=== PATIENT | female | born 1950 | race Hispanic/Latino ===

== ENCOUNTER 2021-11-03 11:31 | Emergency (ER) | payer MEDICARE ==
[2021-11-03 15:37] LABS: Color,Urine Straw (Yellow)
[2021-11-03 15:38] LABS: Red Blood Count 4.79 M/mm3 (3.65-5.03)
[2021-11-03 15:39] LABS: Hematocrit 38.3 % (30.3-42.9); Hemoglobin 12.1 gm/dl (10.1-14.3); Mean Corpuscular HGB Conc 32 % (30-34); Mean Corpuscular Volume 80 fl (79-97); Platelet Count 245 K/mm3 (140-440); Red Cell Distribution Width 18.2 % (13.2-15.2)
[2021-11-03 15:41] LABS: Albumin 3.9 g/dL (3.9-5); Calcium 9.3 mg/dL (8.4-10.2)
[2021-11-03 15:45] LABS: Mucus,Urine FEW /HPF
[2021-11-03 15:48] LABS: Total Cells Counted 100
[2021-11-03 15:49] LABS: Anisocytosis 1+; Hypochromasia 1+; Platelet Estimate Consistent w Auto
[2021-11-03 15:59] LABS: Amphetamine Screen,Urine Negative; Cannabinoid Screen,Urine Negative; Cocaine Screen,Urine Negative; Methadone Screen,Urine Negative; Opiate Screen,Urine Negative
[2021-11-03] MEDS ORDERED: DEXTROSE 50% IN WATER (25GM) 50 ML SYRINGE IV ONE ×2 (16:13→19:47)
[2021-11-03] MEDS ORDERED: SODIUM POLYSTYRENE 15 GM/60 ML ORAL LIQD PO ONE ×2 (16:13→19:47)
[2021-11-03] MEDS ORDERED: INSULIN REGULAR, HUMAN 100 UNITS/1 ML IV ONE ×2 (16:14→19:48)
--- NOTE | 2021-11-03 16:26 | Emergency Department Report ---
<MARIFER VILLALTA - Last Filed: 11/04/21 05:30> ED Psych HPI - General Chief Complaint: Psych Stated Complaint: PSYCH Time Seen by Provider: 11/03/21 13:54 - Related Data Allergies Allergy/AdvReac Type Severity Reaction Status Date / Time No Known Allergies Allergy Verified 11/03/21 13:48 ED Course - Reevaluation(s) Reevaluation #1: 11/04/21 04:31 I WILL RECHECK POTASSIUM TO ENSURE DOWN TRENDING. 11/04/21 05:31 K DOWN; PATIENT MEDICALLY CLEARED FOR BEHAVIOR HEALTH EVALUATION. ED Medical Decision Making - Lab Data Result diagrams: 11/03/21 14:24 11/04/21 04:48 ED Disposition Clinical Impression: Encounter for psychiatric assessment Disposition: HOME / SELF CARE / HOMELESS Condition: Stable Additional Instructions: Professional and Agency Contacts To help [facility](28/09) [place] Crisis Line Suicide Prevention Line: Crisis Text Line: Text START to [phone] Emergency: 911 Outpatient [facility] Behavioral Health Resources: STEPHANY: [facility] [address] [place], [place] [address] [facility] [address] [place] [address] [facility] - [address] [place] [address] Wednesday thru Wednesday - 8am - 5pm [facility] Service Address: [address] [place] [address] [facility] Address: [address] [place] [address] Wednesday thru Wednesday- 7am-2pm [facility] Address: [address] [place] [address] Wednesday thru Wednesday: 8:30AM-5PM OUTPATIENT MENTAL HEALTH RESOURCES [facility], [address] [place] [address] [facility] Thanh Levi MD: [address] [place], [place] [id number] [facility]: [address] [place], [place] [id number] [facility] [address] [place] [address] [phone] [facility]: [address] [place], [place] [id number] [facility]: [address] [facility] [address] [facility] [address] [facility]: [address] [place], [place] Agus Patricio MD: [address] [facility] [id number] [facility]: [address] [place], [place] [id number] [phone] [place] CRISIS AND ACCESS LINE: * Referrals: PRIMARY CAREMD [Primary Care Provider] - 3-5 Days <EDU LÓPEZ - Last Filed: 11/08/21 06:07> ED Psych HPI - General Source: EMS Mode of arrival: Stretcher - History of Present Illness Initial Comments: Patient is a 71-year-old female sent from [facility] for psychiatric evaluation. Patient allegedly was running around naked. Patient states that she simply had a panic attack after having a bad dream. States she thought she was being chased after watching [employer]. States she got up in her down that was provided by her and picked out of her door however was not running around naked. She is alert, cooperative and coherent and is not exhibiting any signs of acute psychosis. ED Review of Systems ROS: Stated complaint: PSYCH Other details as noted in HPI Constitutional: denies: chills, fever Respiratory: denies: cough, shortness of breath, wheezing Cardiovascular: denies: chest pain, palpitations Gastrointestinal: denies: abdominal pain, nausea, diarrhea Genitourinary: denies: urgency, dysuria, discharge Musculoskeletal: denies: back pain, joint swelling, arthralgia Skin: denies: rash, lesions Neurological: denies: headache, weakness, paresthesias Psychiatric: denies: anxiety, depression ED Past Medical Hx - Past Medical History Previous Medical History?: Yes Hx Hypertension: Yes Hx Congestive Heart Failure: Yes Hx Asthma: Yes - Social History Smoking Status: Never Smoker Substance Use Type: None ED Physical Exam - General Limitations: Physical Limitation General appearance: alert, in no apparent distress - Head Head exam: Present: atraumatic, normocephalic - Respiratory Respiratory exam: Present: normal lung sounds bilaterally. Absent: respiratory distress - Cardiovascular Cardiovascular Exam: Present: regular rate, normal rhythm, normal heart sounds - GI/Abdominal GI/Abdominal exam: Present: soft. Absent: distended, tenderness - Rectal Rectal exam: Present: deferred - Extremities Exam Extremities exam: Present: normal inspection. Absent: full ROM - Neurological Exam Neurological exam: Present: alert, oriented X3 - Psychiatric Psychiatric exam: Present: normal affect, normal mood - Skin Skin exam: Present: warm, dry, intact, normal color ED Course Vital Signs 11/03/21 11/03/21 11/03/21 13:43 13:51 14:00 Temperature 97.4 F L Pulse Rate 88 72 Respiratory 14 30 H Rate Blood Pressure 113/58 Blood Pressure 114/60 [Left] Blood Pressure [Right] O2 Sat by Pulse 98 94 94 Oximetry 11/03/21 11/03/21 11/03/21 14:16 14:30 14:46 Temperature Pulse Rate 72 69 71 Respiratory 29 H 22 25 H Rate Blood Pressure 109/52 109/52 105/55 Blood Pressure [Left] Blood Pressure [Right] O2 Sat by Pulse 95 96 95 Oximetry 11/03/21 11/03/21 11/03/21 15:00 15:16 15:30 Temperature Pulse Rate 71 90 84 Respiratory 26 H 39 H 29 H Rate Blood Pressure 109/52 128/73 128/73 Blood Pressure [Left] Blood Pressure [Right] O2 Sat by Pulse 94 95 93 Oximetry 11/03/21 11/03/21 11/03/21 15:46 15:50 16:00 Temperature Pulse Rate 80 89 Respiratory 26 H 23 Rate Blood Pressure 119/75 119/75 Blood Pressure [Left] Blood Pressure [Right] O2 Sat by Pulse 92 98 94 Oximetry 11/03/21 11/03/21 11/03/21 16:16 16:30 16:45 Temperature Pulse Rate 86 88 89 Respiratory 25 H 26 H 15 Rate Blood Pressure 126/73 126/73 131/80 Blood Pressure [Left] Blood Pressure [Right] O2 Sat by Pulse 94 93 Oximetry 11/04/21 11/04/21 11/04/21 08:08 09:16 10:57 Temperature 97.5 F L 97.8 F 97.8 F Pulse Rate 86 99 H 84 Respiratory 18 20 18 Rate Blood Pressure Blood Pressure [Left] Blood Pressure 155/72 139/70 130/78 [Right] O2 Sat by Pulse 92 97 98 Oximetry 11/04/21 11/04/21 13:39 15:49 Temperature 97.8 F 97.8 F Pulse Rate 84 84 Respiratory 20 20 Rate Blood Pressure Blood Pressure [Left] Blood Pressure 132/78 128/74 [Right] O2 Sat by Pulse 97 97 Oximetry ED Medical Decision Making - Lab Data Result diagrams: 11/03/21 14:24 11/04/21 04:48 Critical care attestation.: If time is entered above; I have spent that time in minutes in the direct care of this critically ill patient, excluding procedure time. ED Disposition Is pt being admited?: No
[2021-11-03 16:29] LABS: Benzodiazepines Screen,Urine Positive
[2021-11-03] MEDS ORDERED: SODIUM CHLORIDE 0.9% 1000 ML 1,000 ML IV ONE (20:11)
[2021-11-04 05:19] LABS: Calcium 9.1 mg/dL (8.4-10.2)
[2021-11-04 15:51] VITALS: BP 128/74
== END 2021-11-04 15:50 | disposition home or self-care (01) ==
LOC: ED 11:31
DX: Z13.30 Encounter for screening examination for mental health and behavioral disorders, unspecified (principal); Z79.899 Other long term (current) drug therapy
CPT/HCPCS: 36415; 80048; 80053; 80307; 80320; 81001; 84132; 84443; 85007; 85025; 99284; G0480